=== PATIENT | female | born 1985 ===

== ENCOUNTER 2017-04-16 15:32 | Emergency (ER) | payer OTHER ==
[2017-04-16 15:36] VITALS: BP 122/70; PULSE 103; RESP 20; TEMP 97.8; O2SAT 100
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
== END 2017-04-16 19:39 | disposition home or self-care (01) ==
LOC: H.ER 15:32
DX: S39.92XA Unspecified injury of lower back, initial encounter (principal); V43.62XA Car passenger injured in collision with other type car in traffic accident, initial encounter; Y92.410 Unspecified street and highway as the place of occurrence of the external cause

== ENCOUNTER 2017-05-01 23:51 | Emergency (ER) | payer OTHER ==
[2017-05-01 23:59] VITALS: BP 127/71; PULSE 91; RESP 18; TEMP 97.9; O2SAT 100
[2017-05-02] MEDS ORDERED: Sodium Chloride 0.9% 1,000 ML IV STA (00:07)
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
== END 2017-05-02 01:59 | disposition home or self-care (01) ==
LOC: H.ER 23:51
DX: G43.909 Migraine, unspecified, not intractable, without status migrainosus (principal); M54.2 Cervicalgia

== ENCOUNTER 2017-05-11 14:35 | Emergency (ER) | payer OTHER ==
[2017-05-11 14:52] VITALS: BP 130/81; PULSE 100; RESP 16; TEMP 98.2; O2SAT 100
--- NOTE | 2017-05-11 15:37 | ED PDOC ---
HPI: Abdomen Time Seen by Provider: 05/11/17 14:58 Chief Complaint (Nursing): Abdominal Pain Chief Complaint (Provider): Abdominal Pain History Per: Patient History/Exam Limitations: no limitations Onset/Duration Of Symptoms: Sudden Onset Severity: Moderate Location Of Pain/Discomfort: RLQ, LLQ, Suprapubic Quality Of Discomfort: "Pain" Associated Symptoms: denies: Fever, Nausea, Vomiting Additional Complaint(s): Michael Hunter is a 31 y/o female presenting to the ER on 05/11/2017 with complaints of a sudden onset of lower abdominal pain. Patient states the pain is localized in her RLQ, LLQ, and suprapubic areas. Describes pain as constant. Denies any associated fever, nausea, vomiting, vaginal bleeding or discharge. Past Medical History Reviewed: Historical Data, Nursing Documentation, Vital Signs Vital Signs: Last Vital Signs Temp 98.2 F 05/11/17 14:48 Pulse 100 H 05/11/17 14:48 Resp 16 05/11/17 14:48 BP 130/81 05/11/17 14:48 Pulse Ox 100 05/11/17 15:40 - Medical History PMH: Migraine - Surgical History Surgical History: No Surg Hx - Family History Family History: States: Unknown Family Hx, Diabetes, Hypertension - Social History Current smoker - smoking cessation education provided: No Alcohol: None Drugs: Denies - Immunization History Hx Tetanus Toxoid Vaccination: No Hx Influenza Vaccination: Yes Hx Pneumococcal Vaccination: No - Home Medications Home Medications: Ambulatory Orders Medication Instructions Recorded Sulfamethoxazole/Trimethoprim 1 tab PO BID #14 tab 06/04/16 [Bactrim DS 800 mg-160 mg] Cyclobenzaprine [Cyclobenzaprine 10 mg PO BID #14 tab 04/16/17 HCl] Nitrofurantoin Macrocrystals 100 mg PO BID #13 cap 05/11/17 [Macrobid] Phenazopyridine [Pyridium] 200 mg PO TID PRN #6 tab 05/11/17 - Allergies Allergies/Adverse Reactions: Allergies Allergy/AdvReac Type Severity Reaction Status Date / Time latex Allergy RASH Verified 05/11/17 14:48 Review of Systems ROS Statement: Except As Marked, All Systems Reviewed And Found Negative Constitutional: Negative for: Fever Gastrointestinal: Positive for: Abdominal Pain. Negative for: Nausea, Vomiting Genitourinary Female: Positive for: Pelvic Pain. Negative for: Vaginal Discharge, Vaginal Bleeding Physical Exam - Reviewed Nursing Documentation Reviewed: Yes Vital Signs Reviewed: Yes - Physical Exam Appears: Positive for: Non-toxic, No Acute Distress Head Exam: Positive for: ATRAUMATIC, NORMOCEPHALIC Skin: Positive for: Normal Color. Negative for: Rash Eye Exam: Positive for: Normal appearance, EOMI, PERRL Neck: Positive for: Normal, Painless ROM, Supple Cardiovascular/Chest: Positive for: Regular Rate, Rhythm. Negative for: Murmur Respiratory: Positive for: Normal Breath Sounds. Negative for: Wheezing, Respiratory Distress Gastrointestinal/Abdominal: Positive for: Tenderness ((+) RLQ, LLQ, and suprapubic ) Extremity: Positive for: Normal ROM. Negative for: Deformity, Swelling Neurologic/Psych: Positive for: Alert, Oriented. Negative for: Motor/Sensory Deficits - Laboratory Results Result Diagrams: 05/11/17 16:20 05/11/17 16:20 - ECG O2 Sat by Pulse Oximetry: 100 Pulse Ox Interpretation: Normal - CT Scan/US Pelvic ultrasound Other Rad Studies (CT/US): Radiology Report Reviewed (Small right adnexal fluid. ) Medical Decision Making Medical Decision Makin:58 Initial Impression- 31 y/o female with suprapubic abdominal pain Initial Plan- * CMP * Urine Dip * Urine Preg * CBC w/ differential * PTT * PT * Urinalysis US Transvaginal Documented by Jeronimo Delcid, acting as a scribe for Brittani Mejia MD All medical record entries made by the Scribe were at my direction and personally dictated by me. I have reviewed the chart and agree that the record accurately reflects my personal performance of the history, physical exam, medical decision making, and the department course for this patient. I have also personally directed, reviewed, and agree with the discharge instructions and disposition. Disposition - Clinical Impression Clinical Impression: UTI (urinary tract infection) - Disposition Referrals: Marisela Cruz MD [Family Provider] - Disposition: Routine/Home Disposition Time: 17:10 Condition: STABLE Prescriptions: Nitrofurantoin Macrocrystals [Macrobid] 100 mg PO BID #13 cap Phenazopyridine [Pyridium] 200 mg PO TID PRN #6 tab PRN Reason: Bladder Spasm Instructions: Urinary Tract Infection in Women (ED)
[2017-05-11 15:55] LABS: SQUAMOUS EPITHIAL 6 /hpf (0-5); URINE BACTERIA OCC (<OCC); URINE BILIRUBIN NEGATIVE (NEGATIVE); URINE BLOOD NEGATIVE (NEGATIVE); URINE CLARITY SLIGHTY-CLOUDY (Clear); URINE COLOR YELLOW (YELLOW); URINE GLUCOSE (UA) NEG (Normal); URINE LEUKOCYTE ESTERASE LARGE Leu/uL (Negative); URINE NITRATE NEGATIVE (NEGATIVE); URINE PROTEIN NEGATIVE (NEGATIVE); URINE UROBILINOGEN 0.2-1.0 mg/dL (0.2-1.0)
[2017-05-11 16:35] LABS: BASO % 0.6 % (0.0-2.0); EOS # 0.1 K/uL (0.0-0.7); EOS % 2.7 % (0.0-4.0); HEMOGLOBIN 13.1 g/dL (12.0-16.0); LYMPH # 1.8 K/uL (1.0-4.3); LYMPH % 38.5 % (20.0-40.0); MEAN CELL VOLUME 97.2 fl (81.0-99.0); MEAN CORPUSCULAR HEMOGLOBIN 32.2 pg (27.0-31.0); MEAN CORPUSCULAR HGB CONC 33.1 g/dL (33.0-37.0); MEAN PLATELET VOLUME 7.6 fl (7.2-11.7); MONO # 0.5 K/uL (0.0-0.8); MONO % 10.8 % (0.0-10.0); NEUT # 2.2 K/uL (1.8-7.0); NEUT % 47.4 % (50.0-75.0); NRBC % 0.1 % (0.0-0.0); RBC 4.08 Mil/uL (3.80-5.20); RED CELL DISTRIBUTION WIDTH 13.9 % (11.5-14.5); WHITE BLOOD COUNT 4.6 K/uL (4.8-10.8)
[2017-05-11 16:41] LABS: ALB/GLOB RATIO 1.5 (1.0-2.1); ALBUMIN 4.8 g/dL (3.5-5.0); ALT/SGPT 34 U/L (9-52); AST/SGOT 23 U/L (14-36); BLOOD UREA NITROGEN 8 mg/dl (7-17); CALCIUM 9.3 mg/dL (8.4-10.2); GFR AFRICAN-AMERICAN > 60; GFR NON-AFRICAN AMERICAN > 60
[2017-05-11 16:50] LABS: INR 1.1 (0.9-1.2); PARTIAL THROMBOPLASTIN TIME 35.7 Seconds (25.6-37.1); PROTHROMBIN TIME 12.3 Seconds (9.8-13.1)
--- NOTE | 2017-05-11 17:11 | US ---
HISTORY: Bilateral lower abd pain COMPARISON: Transvaginal pelvic ultrasound performed 09/05/14 TECHNIQUE: Transvaginal pelvic ultrasound FINDINGS: UTERUS: Measures 9.0 x 4.7 x 6.2 cm. Anteverted. ENDOMETRIUM: Measures 1.2 cm in diameter. CERVIX: No cervical abnormality identified. RIGHT OVARY: Measures 3.6 x 1.8 x 3.3 cm. Blood flow is demonstrated. Small right adnexal fluid. LEFT OVARY: Measures 3.3 x 2.1 x 2.6 cm. Blood flow is demonstrated. FREE FLUID: No significant free fluid noted. OTHER FINDINGS: None. IMPRESSION: Small right adnexal fluid.
== END 2017-05-11 15:30 | disposition home or self-care (01) ==
LOC: H.ER 14:35
DX: N39.0 Urinary tract infection, site not specified (principal)

== ENCOUNTER 2018-02-08 22:51 | Emergency (ER) | payer MEDICAID ==
[2018-02-08 23:04] VITALS: BP 117/67; PULSE 106; RESP 18; TEMP 98.2; O2SAT 99
--- NOTE | 2018-02-08 23:56 | ED PDOC ---
HPI: Chest Pain Time Seen by Provider: 02/08/18 23:17 Chief Complaint (Nursing): Chest Pain Chief Complaint (Provider): chest pain History Per: Patient History/Exam Limitations: no limitations Onset/Duration Of Symptoms: Days (4), Waxing/Waning Current Symptoms Are (Timing): Gone Now Additional Complaint(s): 32 y/o female, approximately 25 weeks gestation, presents for evaluation of intermittent chest pain x 4 days. Patient states pain is accompanied by palpitations, described as fast/strong heart beats, and shortness of breath. Patient states all symptoms happen together, last minutes then resolve. Patient was evaluated at [place] [facility] on Wednesday, had blood work and discharged with an outpatient cardiology follow up appointment for this coming . Patient presents tonight due to persistent symptoms, although not as intense as onset on Wednesday. Denies fever, cough, congestion, leg pain/swelling, abdominal, pain, recent travel, vaginal bleeding/discharge. Patient smokes 3 cigarettes per day, down from 1 pack per day before . Past Medical History Reviewed: Historical Data, Nursing Documentation, Vital Signs Vital Signs: Last Vital Signs Temp 98.2 F 02/08/18 23:02 Pulse 106 H 02/08/18 23:02 Resp 18 02/08/18 23:02 BP 117/67 02/08/18 23:02 Pulse Ox 99 02/09/18 01:53 - Medical History PMH: Migraine - Surgical History Surgical History: No Surg Hx - Family History Family History: States: Unknown Family Hx, Diabetes, Hypertension - Immunization History Hx Tetanus Toxoid Vaccination: No Hx Influenza Vaccination: Yes Hx Pneumococcal Vaccination: No - Home Medications Home Medications: Ambulatory Orders Medication Instructions Recorded Sulfamethoxazole/Trimethoprim 1 tab PO BID #14 tab 06/04/16 [Bactrim DS 800 mg-160 mg] Cyclobenzaprine [Cyclobenzaprine 10 mg PO BID #14 tab 04/16/17 HCl] Nitrofurantoin Macrocrystals 100 mg PO BID #13 cap 05/11/17 [Macrobid] Phenazopyridine [Pyridium] 200 mg PO TID PRN #6 tab 05/11/17 - Allergies Allergies/Adverse Reactions: Allergies Allergy/AdvReac Type Severity Reaction Status Date / Time latex Allergy RASH Verified 09/22/17 23:56 Review of Systems ROS Statement: Except As Marked, All Systems Reviewed And Found Negative Cardiovascular: Positive for: Chest Pain, Palpitations Respiratory: Positive for: Shortness of Breath Physical Exam - Reviewed Nursing Documentation Reviewed: Yes Vital Signs Reviewed: Yes - Physical Exam Appears: Positive for: Well, Non-toxic, No Acute Distress Head Exam: Positive for: ATRAUMATIC, NORMAL INSPECTION, NORMOCEPHALIC Skin: Positive for: Normal Color Eye Exam: Positive for: Normal appearance ENT: Positive for: Normal ENT Inspection Cardiovascular/Chest: Positive for: Regular Rate, Rhythm Respiratory: Positive for: Normal Breath Sounds Gastrointestinal/Abdominal: Positive for: Normal Exam Back: Positive for: Normal Inspection Extremity: Positive for: Normal ROM Neurologic/Psych: Positive for: Alert, Oriented - Laboratory Results Result Diagrams: 02/08/18 23:50 02/08/18 23:50 - ECG ECG: Positive for: Viewed By Me (reviewed by ED attending) ECG Rhythm: Positive for: Sinus Rhythm O2 Sat by Pulse Oximetry: 99 - Progress ED Course And Treament: Patient evaluated by ED attending Dr. Monreal; recommends ordering labs, venous duplex b/l ultrasound, CTA chest. Risks vs benefits explained by Dr. Monreal and again by blog writer during signing of consent for radiology procedure during . Patient agreeable to plan EXAM: US Duplex Bilateral Lower Extremity Veins CLINICAL HISTORY: 32 years old, female; Pain; Other: Chest pain; Additional info: R/out dvt TECHNIQUE: Real-time ultrasound scan of the veins of the bilateral lower extremities with color Doppler flow, spectral waveform analysis and compression. COMPARISON: No relevant prior studies available. FINDINGS: Right deep veins: Normal color and spectral Doppler flow. Normal compressibility. No deep vein thrombosis from common femoral to popliteal vein. Right superficial veins: Unremarkable. Left deep veins: Normal color and spectral Doppler flow. Normal compressibility. No deep vein thrombosis from common femoral to popliteal vein. Left superficial veins: Unremarkable. Soft tissues: No popliteal cyst. IMPRESSION: 1. No evidence of DVT within lower extremities EXAM: CT Angiography Chest With Intravenous Contrast CLINICAL HISTORY: 32 years old, female; Signs and symptoms; Shortness of breath; Additional info: Chest pain, SOB. 24 weeks TECHNIQUE: Axial computed tomographic angiography images of the chest with intravenous contrast using pulmonary embolism protocol. All CT scans at this facility use one or more dose reduction techniques, viz.: automated exposure control; ma/kV adjustment per patient size (including targeted exams where dose is matched to indication; i.e. head); or iterative reconstruction technique. MIP reconstructed images were created and reviewed. Coronal and sagittal reformatted images were created and reviewed. CONTRAST: 90 mL of [id number] administered intravenously. COMPARISON: CT CHEST W/ IV CONT 2012-03-09 13:12 FINDINGS: Pulmonary arteries: Mild enlargement of pulmonary trunk, to 3.2 cm. No pulmonary embolism. Aorta: No aneurysm. No dissection. Lungs: No consolidation. Pleural space: No significant effusion. No pneumothorax. Heart: No cardiomegaly. No significant pericardial effusion. Bones/joints: No acute fracture. Soft tissues: Unremarkable. Lymph nodes: No pathologically enlarged lymph nodes. IMPRESSION: 1. No CT evidence of pulmonary embolism. 2. Incidental/non-acute findings are described above. Patient educated on findings, discharged with instructions to follow up with [employer] as scheduled. Return precautions given. Disposition - Clinical Impression Clinical Impression: Chest pain, Palpitations - Patient ED Disposition Is Patient to be Admitted: No Counseled Patient/Family Regarding: Studies Performed, Diagnosis, Need For Followup, Smoking Cessation - Disposition Referrals: Marisela Cruz MD [Primary Care Provider] - Disposition: Routine/Home Disposition Time: 02:52 Condition: STABLE Instructions: Palpitations, Chest Pain Forms: [email or web address] (Pakistani)
[2018-02-09 00:05] LABS: BASO # 0.1 K/uL (0.0-0.2); EOS # 0.2 K/uL (0.0-0.7); EOS % 2.8 % (0.0-4.0); HEMOGLOBIN 11.5 g/dL (12.0-16.0); LYMPH # 1.9 K/uL (1.0-4.3); LYMPH % 26.9 % (20.0-40.0); MEAN CELL VOLUME 97.8 fl (81.0-99.0); MEAN CORPUSCULAR HEMOGLOBIN 33.6 pg (27.0-31.0); MEAN CORPUSCULAR HGB CONC 34.3 g/dL (33.0-37.0); MEAN PLATELET VOLUME 7.7 fl (7.2-11.7); MONO # 0.7 K/uL (0.0-0.8); MONO % 9.9 % (0.0-10.0); NEUT # 4.2 K/uL (1.8-7.0); NEUT % 59.4 % (50.0-75.0); NRBC % 0.1 % (0.0-0.0); RBC 3.43 Mil/uL (3.80-5.20); RED CELL DISTRIBUTION WIDTH 14.8 % (11.5-14.5); WHITE BLOOD COUNT 7.1 K/uL (4.8-10.8)
[2018-02-09 00:20] LABS: ALBUMIN 3.7 g/dL (3.5-5.0); ALT/SGPT 18 U/L (9-52); AST/SGOT 14 U/L (14-36); BLOOD UREA NITROGEN 8 mg/dl (7-17); CALCIUM 9.1 mg/dL (8.4-10.2); GFR AFRICAN-AMERICAN > 60; GFR NON-AFRICAN AMERICAN > 60
[2018-02-09 00:32] LABS: B-TYPE NATRIURETIC PEPTIDE 13.3 pg/ml (0-450)
--- NOTE | 2018-02-09 00:38 | US ---
EXAM: US Duplex Bilateral Lower Extremity Veins CLINICAL HISTORY: 32 years old, female; Pain; Other: Chest pain; Additional info: R/out dvt TECHNIQUE: Real-time ultrasound scan of the veins of the bilateral lower extremities with color Doppler flow, spectral waveform analysis and compression. COMPARISON: No relevant prior studies available. FINDINGS: Right deep veins: Normal color and spectral Doppler flow. Normal compressibility. No deep vein thrombosis from common femoral to popliteal vein. Right superficial veins: Unremarkable. Left deep veins: Normal color and spectral Doppler flow. Normal compressibility. No deep vein thrombosis from common femoral to popliteal vein. Left superficial veins: Unremarkable. Soft tissues: No popliteal cyst. IMPRESSION: 1. No evidence of DVT within lower extremities.
[2018-02-09] MEDS ORDERED: Iodixanol 320 MG/ML 100 ML BOTTLE IV ONE (01:57)
[2018-02-09] MEDS ORDERED: Sodium Chloride 0.9% 100 ML ONE (01:57)
--- NOTE | 2018-02-09 02:29 | CT ---
EXAM: CT Angiography Chest With Intravenous Contrast CLINICAL HISTORY: 32 years old, female; Signs and symptoms; Shortness of breath; Additional info: Chest pain, SOB. 24 weeks TECHNIQUE: Axial computed tomographic angiography images of the chest with intravenous contrast using pulmonary embolism protocol. All CT scans at this facility use one or more dose reduction techniques, viz.: automated exposure control; ma/kV adjustment per patient size (including targeted exams where dose is matched to indication; i.e. head); or iterative reconstruction technique. MIP reconstructed images were created and reviewed. Coronal and sagittal reformatted images were created and reviewed. CONTRAST: 90 mL of [id number] administered intravenously. COMPARISON: CT CHEST W/ IV CONT 2012-03-09 13:12 FINDINGS: Pulmonary arteries: Mild enlargement of pulmonary trunk, to 3.2 cm. No pulmonary embolism. Aorta: No aneurysm. No dissection. Lungs: No consolidation. Pleural space: No significant effusion. No pneumothorax. Heart: No cardiomegaly. No significant pericardial effusion. Bones/joints: No acute fracture. Soft tissues: Unremarkable. Lymph nodes: No pathologically enlarged lymph nodes. IMPRESSION: 1. No CT evidence of pulmonary embolism. 2. Incidental/non-acute findings are described above.
== END 2018-02-09 03:00 | disposition home or self-care (01) ==
LOC: H.ER 22:51
DX: R07.89 Other chest pain (principal); R00.2 Palpitations; O26.892 Other specified pregnancy related conditions, second trimester; Z3A.25 25 weeks gestation of pregnancy
CPT/HCPCS: 71275; 80053; 83880; 84443; 84484; 85025; 93970; 99283; Q9967